=== PATIENT | male | born 1975 | race Caucasian/White ===

== ENCOUNTER 2019-04-12 15:40 | Emergency (ER) | payer MEDICAID ==
[2019-04-12] MEDS ORDERED: ceFAZolin 1,000 MG VIAL ONE (17:31)
[2019-04-12] MEDS ORDERED: WATER STERILE 10 ML MC ONE (17:31)
[2019-04-12] MEDS ORDERED: MORPHINE SULFATE 4 MG/ML SYR ONE (17:34)
== END 2019-04-12 19:15 | disposition home or self-care (01) ==
LOC: MED 15:40
DX: L03.116 Cellulitis of left lower limb (principal); L81.8 Other specified disorders of pigmentation; M10.9 Gout, unspecified; F17.210 Nicotine dependence, cigarettes, uncomplicated; Z71.6 Tobacco abuse counseling
CPT/HCPCS: 99283; J0690; J2270

== ENCOUNTER 2020-09-21 11:11 | Emergency (ER) | payer MEDICAID ==
[~2020-09-21] VITALS: Ht 180.3 cm; Wt 158.8 kg
[2020-09-21 11:17] VITALS: BP 159/88
[2020-09-21] MEDS ORDERED: DOXYCYCLINE 100 MG CAP PO SCH (11:45)
[2020-09-21] MEDS ORDERED: ACYCLOVIR 200 MG CAP PO ONE (11:45)
[2020-09-21] MEDS ORDERED: cefTRIAXone 500 MG in LIDOCAINE MPF 1% 1 ML IM ONE (11:45)
[2020-09-21] MEDS ORDERED: cefTRIAXone 500 MG VIAL ONE (11:48)
[2020-09-21] MEDS ORDERED: LIDOCAINE MPF 1% 5 ML ONE (11:49)
[2020-09-21] MEDS ORDERED: DOXY100C9 PO (12:25)
[2020-09-21] MEDS ORDERED: ACYC400T1 PO (12:25)
[2020-09-21] MEDS ORDERED: PYR100 PO (12:25)
[2020-09-21 12:32] VITALS: BP 159/88
[2020-09-21] MEDS ORDERED: NAPR-1560 PO (12:34)
== END 2020-09-21 12:30 | disposition home or self-care (01) ==
LOC: MED 11:11
DX: R36.9 Urethral discharge, unspecified (principal); I10 Essential (primary) hypertension; Z20.2 Contact with and (suspected) exposure to infections with a predominantly sexual mode of transmission; Z79.899 Other long term (current) drug therapy
CPT/HCPCS: 36415; 81002; 87491; 96372; 99283; J0696; J2001

== ENCOUNTER 2021-10-02 14:20 | Emergency (ER) | payer MEDICAID ==
[~2021-10-02] VITALS: Ht 180.3 cm; Wt 122.0 kg
[~2021-10-02 14:20] MED LIST: ACYC-276 PO; DOXY-690 PO; NAPR-1560 PO; PYR100 PO
[2021-10-02 14:22] VITALS: BP 127/77
[2021-10-02] MEDS ORDERED: methylPREDNISolone SS 40 MG/ML VIAL ONE (15:04)
[2021-10-02] MEDS ORDERED: WATER STERILE 10 ML MC ONE (15:04)
[2021-10-02] MEDS ORDERED: methylPREDNISolone SS 40 MG in WATER STERILE 1 ML IM ONE (15:05)
[2021-10-02] MEDS ORDERED: KETOROLAC 60 MG/2 ML VIAL IM ONE (15:05)
[2021-10-02] MEDS ORDERED: ZYL300 PO (15:07)
[2021-10-02] MEDS ORDERED: ACET-8386 PO (15:07)
[2021-10-02 15:20] VITALS: BP 119/87
== END 2021-10-02 15:20 | disposition home or self-care (01) ==
LOC: MED 14:20
DX: M10.9 Gout, unspecified (principal); I10 Essential (primary) hypertension
CPT/HCPCS: 82948; 96372; 99284; J1885; J2920

== ENCOUNTER 2021-10-21 18:24 | Emergency (ER) | payer MEDICAID ==
[~2021-10-21] VITALS: Ht 177.8 cm; Wt 103.0 kg
[~2021-10-21 18:24] MED LIST changes: +ACET-8386 PO; +ZYL300 PO
[2021-10-21 18:41] VITALS: BP 124/75
--- NOTE | 2021-10-21 18:42 | NUR ---
pt was noted to have learning disability and hx of gout. mother rigo wright [phone]
--- NOTE | 2021-10-21 18:50 | NUR ---
walked in c/o gout attack on b/l lower and upper ext. pt hx gout but ran out of gout med and has not been to his pcp. states onset 1 month. aaox3, ambulatory, vitals stable.
[2021-10-21] MEDS ORDERED: KETOROLAC 30 MG/ML VIAL IM ONE (19:15)
--- NOTE | 2021-10-21 19:25 | NUR ---
HANDOFF REPORT GIVEN TO FREDO ALCANTARA
[2021-10-21] MEDS ORDERED: INDO-323 PO (19:34)
[2021-10-21 19:56] VITALS: BP 132/78
--- NOTE | 2021-10-21 19:56 | NUR ---
Patient discharged with v/s stable. Written and verbal after care instructions given and explained. Patient alert, oriented and verbalized understanding of instructions. Ambulatory with steady gait. All questions addressed prior to discharge. ID band removed. Patient advised to follow up with PMD. Rx of INDOMETHACIN given. Patient educated on indication of medication including possible reaction and side effects. Opportunity to ask questions provided and answered.
== END 2021-10-21 19:56 | disposition home or self-care (01) ==
LOC: MED 18:24
DX: M1A.9XX0 Chronic gout, unspecified, without tophus (tophi) (principal); M79.641 Pain in right hand; M79.642 Pain in left hand; I10 Essential (primary) hypertension; Z79.899 Other long term (current) drug therapy
CPT/HCPCS: 96372; 99283; J1885

== ENCOUNTER 2022-01-18 15:27 | Emergency (ER) | payer MEDICAID ==
[~2022-01-18] VITALS: Ht 180.3 cm; Wt 158.8 kg
[~2022-01-18 15:27] MED LIST changes: +INDO-323 PO
[2022-01-18 15:39] VITALS: BP 135/90
--- NOTE | 2022-01-18 15:48 | NUR ---
PT WC ASSISTED TO BED 11
--- NOTE | 2022-01-18 15:50 | NUR ---
46 y/o M BIB self from home c/o gout flare up x 2 days. Pt A&Ox4, wheelchair assisted, states hx of gout. Pt presents c/o left ankle swelling and pain; 10/10, throbbing/constant, non-radiating pain worsening with ambulating. Erythema, edema, and tenderness to L ankle. Patient also states slight pain to bilateral hands. States symptoms feel similar to previous flare-up 2 months ago. States ran out of prescribed Indomethacin. Denies meds today. Denies trauma/injury/fall. Bed locked in lowest position, side rails x 1. PMH: DM, gout Meds: indomethacin NKDA Sx: lymphoma removal (head)
[2022-01-18] MEDS ORDERED: KETOROLAC 60 MG/2 ML VIAL IM ONE (16:40)
[2022-01-18] MEDS ORDERED: MORPHINE SULFATE 4 MG/ML SYR IM ONE (16:40)
[2022-01-18 17:53] VITALS: BP 128/88
--- NOTE | 2022-01-18 17:53 | NUR ---
Pt states + relief to pain; 0/10 at this time. RR even/unlabored.
[2022-01-18] MEDS ORDERED: ALLO100T21 PO (18:46)
[2022-01-18] MEDS ORDERED: COLC-30 PO (18:46)
[2022-01-18] MEDS ORDERED: INDO-323 PO (18:46)
--- NOTE | 2022-01-18 18:55 | NUR ---
Patient discharged with v/s stable. Written and verbal after care instructions given and explained. Patient alert, oriented and verbalized understanding of instructions. Wheel Chair Assisted to vehicle (family-transport). All questions addressed prior to discharge. ID band removed. Patient advised to follow up with PMD. Rx of Allopurinol, Colchicine, Indomethacin given. Patient educated on indication of medication including possible reaction and side effects. Opportunity to ask questions provided and answered.
== END 2022-01-18 18:55 | disposition home or self-care (01) ==
LOC: MED 15:27
DX: M10.9 Gout, unspecified (principal); E11.9 Type 2 diabetes mellitus without complications; Z79.4 Long term (current) use of insulin; Z79.899 Other long term (current) drug therapy
CPT/HCPCS: 96372; 99284; J1885; J2270